=== PATIENT | female | born 1950 | race Caucasian/White ===

== ENCOUNTER 2019-01-18 14:27 | Observation (INO) | payer BC ==
[2019-01-18] MEDS ORDERED: ALBUTEROL 2.5 MG/3 ML NEB SOL NEB PRN (15:49)
[2019-01-18] MEDS ORDERED: ACETAMINOPHEN 325 MG TABLET PO PRN (15:53)
[2019-01-18] MEDS ORDERED: DIPHENHYDRAMINE 25 MG TAB/CAP PO PRN (15:53)
[2019-01-18] MEDS ORDERED: POLYETHYL GLY 3350 17 GM/DOSE PO PRN (15:54)
[2019-01-18] MEDS ORDERED: ONDANSETRON 4 MG/2 ML VIAL IV PRN (15:54)
[2019-01-18] MEDS ORDERED: ONDANSETRON 4 MG (ODT) TAB PO PRN (15:54)
[2019-01-18] MEDS ORDERED: LOPERAMIDE HCL 2 MG CAPSULE PO PRN (15:54)
[2019-01-18] MEDS ORDERED: NACHLORIDE 0.45% 1,000 ML IV SCH (16:00)
[2019-01-18 16:09] LABS: Absolute Lymphocytes (CBC) 2.4 K/uL (0.7-4.9); Basophils % 1.1 % (0-1.3); Hematocrit 43.4 % (36.0-45.0); Lymphocytes % 19.5 % (15.3-44.8); RBC Red Blood Cell Count 4.98 M/uL (3.86-4.86)
[2019-01-18 16:12] LABS: Protime INR 1.02
--- NOTE | 2019-01-18 16:27 | EKG ---
Test Date: 2019-01-18 Test Time: 15:53:31 [employer]: PATO MEASUREMENT RESULTS: Intervals: Rate: 83 MA: 140 QRSD: 72 QT: 358 QTc: 420 [place]: P: 81 MA: 140 QRS: 69 T: 75 INTERPRETIVE STATEMENTS: Sinus rhythm with premature supraventricular complexes Otherwise normal ECG Compared to ECG 12/14/2013 08:20:26 Atrial premature complex(es) now present ST (T wave) deviation no longer present Electronically Signed On 01-18-19 16:26:34 PROFESSOR OF [employer]ISTR[employer] by Harinder Jones
[2019-01-18 16:44] LABS: Albumin 3.2 g/dL (3.4-5.0); Bilirubin Direct 0.2 mg/dL (0-0.2); Bilirubin Total 0.4 mg/dL (0.2-1.0); Phosphorus 3.2 mg/dL (2.5-4.9); Potassium 4.2 mmol/L (3.5-5.1); Protein, Total 8.1 g/dL (6.4-8.2); Thyroid Stimulating Hormone 1.46 uIU/mL (0.360-3.740)
[2019-01-18 16:58] VITALS: BMI 32.1
[2019-01-18] MEDS: PIPER/TAZO/NS 3.375gm 3.375 GM/100 ML BAG IV SCH ×2 (17:07→23:42)
[2019-01-18 17:09] LABS: Blood Morphology Comment NOT SEEN (NOT SEEN); Platelet Estimate ADEQ; Urine White Blood Cell Casts OK
--- NOTE | 2019-01-18 17:25 | RAD REPORT ---
EXAM DESCRIPTION: RAD - Chest Pa And Lat (2 Views) - 01/18/2019 5:01 pm CLINICAL HISTORY: lung mass, Chest pain. COMPARISON: Chest Pa And Lat (2 Views) dated 01/15/2019; Chest Pa And Lat (2 Views) dated 11/16/2018; Chest Pa And Lat (2 Views) dated 04/02/2017; CHEST SINGLE VIEW dated 12/14/2013 FINDINGS: Emphysematous changes are present throughout the lungs. Centrally located left hilar mass/ consolidation seen extending posteriorly, unchanged. The heart is normal in size. No displaced fract ures.
[2019-01-18] MEDS ORDERED: INFLUENZA VACCINE (for 3y+) 0.5 ML DOSE IMVAC ONE (18:00)
--- NOTE | 2019-01-18 18:23 | RAD REPORT ---
EXAM DESCRIPTION: CT - Thorax W/ Con CLINICAL HISTORY: Chest pain lung mass, post obst pneumonia COMPARISON: No comparisons FINDINGS: Left infrahilar mass is seen extending into the superior segment left lower lobe medially where there is significant lung consolidation. Areas of necrosis are seen within the large consolidat ed area of lung parenchyma. Emphysematous changes are present the throughout the lungs. No pneumothor ax. Low-density necrotic left hilar and infrahilar lymph nodes are present the largest measuring about 16 -17 mm. Small dystrophic calcifications are also present. No rib destruction seen. Mild thickening of the left adrenal gland is seen. Small hiatal hernia. All CT scans are performed using dose optimization technique as appropriate and may include automated exposure control or mA/KV adjustment according to patient size. IMPRESSION: Large area of masslike consolidation with areas of necrosis in the superior segment left lower lobe. 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 Bronchoscopy would be suggested for further eval uation.
[2019-01-18] MEDS: IPRATROPIUM BROM 0.5MG/2.5ML IH SCH (19:20)
[2019-01-18] MEDS: LEVALBUTEROL 1.25 MG/3 ML NEB IH SCH (19:20)
[2019-01-18] MEDS: ENOXAPARIN 40 MG/0.4 ML SQ SCH ×2 (21:00→21:31)
[2019-01-19] MEDS: IPRATROPIUM BROM 0.5MG/2.5ML IH SCH ×2 (01:30→08:01)
[2019-01-19] MEDS: LEVALBUTEROL 1.25 MG/3 ML NEB IH SCH ×2 (01:30→08:01)
[2019-01-19 02:35] VITALS: O2SAT 90
[2019-01-19 04:26] LABS: Absolute Lymphocytes (CBC) 1.7 K/uL (0.7-4.9); Basophils % 0.9 % (0-1.3); Hematocrit 38.2 % (36.0-45.0); Lymphocytes % 19.3 % (15.3-44.8); MPV 9.9 fL (7.6-11.3); RBC Red Blood Cell Count 4.45 M/uL (3.86-4.86)
[2019-01-19 04:31] LABS: Magnesium 2.1 mg/dL (1.8-2.4); Potassium 3.9 mmol/L (3.5-5.1)
[2019-01-19] MEDS: PIPER/TAZO/NS 3.375gm 3.375 GM/100 ML BAG IV SCH ×2 (05:50→11:16)
[2019-01-19 07:11] LABS: Urine Appearance CLEAR; Urine Bilirubin NEGATIVE (NEG); Urine Blood NEGATIVE (NEG); Urine Color YELLOW; Urine Glucose NEGATIVE (NEG); Urine Protein NEGATIVE (NEG)
[2019-01-19 07:23] LABS: Urine Microscopic Reflex NO UMIC
[2019-01-19] MEDS ORDERED: POTASSIUM CL SA 10 MEQ TAB PO ONE (07:49)
--- NOTE | 2019-01-19 08:53 | P.CNS ---
Date of Consult: 01/19/19 Reason for Consult: Left-sided lung mass Chief Complaint: Left-sided chest pain History of Present Illness: Patient is 68 years of age admitted with left-sided lung mass that was present since October patient did not follow up and was treated with 1 course of antibiotics and appeared in the hospital after having a chest x-ray done apart from chest pain she denies any fever chills has had recurrent hemoptysis. Patient is on Plavix of former smoker. She quit in 2007 smoked for 50 years history of COPD apparently he has been severe in takes trilogy that helps her Allergies Sulfa (Sulfonamide Antibiotics) Allergy (Verified 12/13/13 22:54) Itching/Hives/Rash Home Medications: Clopidogrel Bisulfate [Plavix*] 75 mg PO DAILY 01/18/19 Fluticasone/Umeclidin/Vilanter [Trelegy Ellipta 100-62.5-25] 1 puff IH DAILY Ipratropium/Albuterol Sulfate [Combivent Respimat 20-100 Mcg] 1 puff IH QID Pravastatin Sodium 40 mg PO BEDTIME 01/18/19 Vortioxetine Hydrobromide [Trintellix] 20 mg PO DAILY 01/18/19 - Past Medical/Surgical History Diabetic: No -: HYPERTENSION -: CVA X2 -: COPD -: OSTEOPOROSIS -: PANCREATITIS -: BILATERAL TUBAL LIGATION -: CLEFT LIP REPAIR - Family History Father Medical History: Diabetes - Social History Alcohol use: No CD- Drugs: No Caffeine use: Yes Place of Residence: Home Review of Systems 10-point ROS is otherwise unremarkable General: Weakness Respiratory: Shortness of Breath, Hemoptysis Cardiovascular: Chest Pain Physical Examination Temp Pulse Resp BP Pulse Ox 98.0 F 90 18 98/72 94 01/19/19 04:00 01/19/19 04:00 01/19/19 04:00 01/19/19 04:00 01/19/19 04:00 General: Alert, In no apparent distress, Oriented x3 Neck: Supple Respiratory: Expiratory wheezes Cardiovascular: Regular rate/rhythm, Normal S1 S2 Gastrointestinal: Normal bowel sounds, Soft and benign Laboratory Data (last 24 hrs) 01/19/19 03:37: Sodium 138, Potassium 3.9, BUN 8, Creatinine 0.67, Glucose 114 H , Magnesium 2.1 01/19/19 03:37: WBC 9.0 D, Hgb 12.8, Hct 38.2, Plt Count 295 01/18/19 15:55: PT 12.0, INR 1.02, APTT 18.4 L 01/18/19 15:55: Sodium 135 L, Potassium 4.2, BUN 12, Creatinine 0.76, Glucose 92 , Phosphorus 3.2, Magnesium 2.0, Total Bilirubin 0.4, AST 14 L, ALT 19, Alkaline Phosphatase 158 H 01/18/19 15:55: WBC 12.4 H, Hgb 14.2, Hct 43.4, Plt Count 342 - Problems (1) Lung mass Current Visit: Yes Status: Acute Plan: Patient is 68 years of age admitted with left-sided chest pain and has enlarging mass on the left side this in the lower lobe superior segment patient has a history of hemoptysis is a former smoker or probably a malignancy. Labs reviewed minimally elevated alkaline phosphatase of discuss with the patient in detail unresolving pneumonia is most likely cancer of discuss with her a bronchoscopy that was that she will have to wait for a week off Plavix. Patient is reluctant to undergo any biopsies or procedures on any treatment right now I discuss with Dr. Augustin discharge home on antibiotics and steroids you could be postinflammatory or the Plavix for now. Follow up with me in 2 weeks and will discuss what the next step to take with her she would want to proceed with workup which include bronchoscopy PET scan and a repeat pulmonary function tests I doubt if she has a surgical candidate doubt sepsis CT scan chest x-rays all reviewed. Lung mass noticed in 03/2017 and has increasedin size
[2019-01-19] MEDS ORDERED: CLOPIDOGREL 75 MG TABLET PO SCH (09:00)
[2019-01-19] MEDS ORDERED: HOME MED 1 EA UNK (Vortioxetine Hydrobromide [Trintellix] 20 MG) PO SCH (09:00)
[2019-01-19] MEDS ORDERED: HOME MED 1 EA UNK (Fluticasone/Umeclidin/Vilanter [Trelegy Ellipta 100-62.5-25] 1 PUFF) IH SCH (09:00)
[2019-01-19] MEDS ORDERED: predniSONE 20 MG TAB PO SCH (09:00)
[2019-01-19 12:22] VITALS: BP 121/75; TEMP 98.2
[2019-01-19] MEDS ORDERED: ATORVASTATIN 10 MG TAB PO SCH (21:00)
--- NOTE | 2019-01-20 04:45 | DS ---
Date of Discharge: 01/19/2019 Final Diagnosis: Large lung mass on left side. Secondary Diagnoses: History of chronic obstructive pulmonary disease and heavy smoking in the past. Hospital Course: Patient is a 68-year-old lady who had pneumonia like consolidation according to x-r ay report by Radiology for which she was given antibiotics, failed to improve; so we had redone the x -ray which continues to show the same kind of pneumonia like consolidation report. I decided to admi t her with the possibility of lung cancer. Unfortunately, on CT scan, she does have a lung mass, whi keith needs to be further investigated with a bronchoscopy and biopsy, but she refuses to do so because she knows that with this kind of tumor, a large lung mass, she will most likely not recover from any kind of chemoradiation or surgical treatment, and she will decide and let Dr. Alvarez know the time o f followup. GIOVANY/TEE Voice ID: [id number] Report ID: [id number]
== END 2019-01-19 15:22 | disposition home or self-care (01) ==
LOC: 4TH 14:59
PROVIDERS: ADMIT Internal Medicine; ATTEND Internal Medicine
DX: R91.8 Other nonspecific abnormal finding of lung field (principal); E78.5 Hyperlipidemia, unspecified; J44.9 Chronic obstructive pulmonary disease, unspecified; I10 Essential (primary) hypertension; M81.0 Age-related osteoporosis without current pathological fracture; Z86.73 Personal history of transient ischemic attack (TIA), and cerebral infarction without residual deficits; Z88.2 Allergy status to sulfonamides; Z87.891 Personal history of nicotine dependence
CPT/HCPCS: 93005; 87070; 85025 ×2; 80048 ×2; 36415 ×2; 83735 ×2; 87205; 84100; 85610; 80076; 85730; 84443; 87077; 87186; 81003; 82607; 82306; 71260; 71046; 94640 ×3; J2543; G0378 ×3; J1650; J7512

== ENCOUNTER 2019-04-20 18:39 | Emergency (ER) | payer BC ==
--- NOTE | 2019-04-20 19:39 | RAD REPORT ---
EXAM DESCRIPTION: RAD - Chest Pa And Lat (2 Views) - 04/20/2019 7:30 pm CLINICAL HISTORY: chest pain COMPARISON: Chest Pa And Lat (2 Views) dated 02/05/2019; Chest Pa And Lat (2 Views) dated 01/18/2019 ; Thorax W/ Con dated 01/18/2019 TECHNIQUE: Frontal and lateral views of the chest were obtained. FINDINGS: The lungs are normal volume. Patient has pronounced bullous emphysema changes in each uppe r lung field. Fibrotic stranding in the right lower lung field is not substantially different. Patient has a known large mass in the posterior left lung field. This has enlarged since prior imagin g a reaching the left hemidiaphragm. This could be expansion of tumor, expansion of necrotic componen t or localized entrapped fluid. Heart size is normal and central vasculature is within normal limits. No pleural effusion or pneumot horax seen. Bones are osteopenic. Wedging of a midthoracic vertebral body is not clearly different rom January. Clearly pathologic rib process is not identifiable. No aortic abnormality. IMPRESSION: Since February 05 imaging there has been enlargement of the known posterior left lung ma ss. This could be from tumor growth, necrosis or adjacent fluid/parenchymal change. Osteopenic and degenerative bony change. No clearly pathologic bone process or bony change.
[2019-04-20] MEDS ORDERED: LEVALBUTEROL 1.25 MG/3 ML NEB ONE (21:04)
[2019-04-20 21:21] LABS: Absolute Lymphocytes (CBC) 2.2 K/uL (0.7-4.9); Basophils % 0.9 % (0-1.3); Hematocrit 43.1 % (36.0-45.0); Lymphocytes % 14.7 % (15.3-44.8); MPV 9.4 fL (7.6-11.3); RBC Red Blood Cell Count 4.96 M/uL (3.86-4.86)
[2019-04-20 21:58] LABS: Protime INR 1.16
[2019-04-20 22:11] LABS: ALT/SGPT 11 U/L (12-78); AST/SGOT 8 U/L (15-37); Albumin 2.7 g/dL (3.4-5.0); Alkaline Phosphatase 127 U/L (45-117); BUN Blood Urea Nitrogen 12 mg/dL (7-18); Bicarbonate 34 mmol/L (21-32); Bilirubin Direct < 0.1 mg/dL (0-0.2); Bilirubin Total 0.2 mg/dL (0.2-1.0); Glucose Level 111 mg/dL (74-106); Magnesium 2.1 mg/dL (1.8-2.4); NT PRO-BNP 134 pg/mL (<125); Potassium 4.6 mmol/L (3.5-5.1); Protein, Total 8.1 g/dL (6.4-8.2); Sodium Level 136 mmol/L (136-145); Troponin (Emerg Dept Use Only) < 0.02 ng/mL (0.0-0.045)
[2019-04-20] MEDS ORDERED: HYDROCODONE/APAP 5/325 MG TAB ONE (23:54)
[2019-04-20] MEDS ORDERED: levoFLOXacin 750 MG TAB ONE (23:54)
--- NOTE | 2019-04-21 01:07 | ER ---
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 Transition of care: patient was not received from another setting of care. Onset of symptoms was April 20, 2019. Care prior to arrival: None. 18:58 Method Of Arrival: Wheelchair sv 18:58 Acuity: AISSATOU 3 sv 20:57 Risk Assessment: Do you want to hurt yourself or someone else? Patient reports no mg2 desire to harm self or others. Initial Sepsis Screen: Does the patient meet any 2 criteria? No. Patient's initial sepsis screen is negative. Does the patient have a suspected source of infection? No. Patient's initial sepsis screen is negative. Triage Assessment: 18:58 General: Appears in no apparent distress. uncomfortable, Behavior is calm, cooperative, sv appropriate for age. Pain: Complains of pain in left lateral posterior chest and left lateral anterior chest. Neuro: Level of Consciousness is awake, alert, obeys commands. Respiratory: Respiratory effort is even, unlabored. Derm: Skin is pink, warm \\T\\ dry. Historical: - Allergies: 18:59 Sulfa (Sulfonamide Antibiotics); sv - PMHx: 18:59 lung cancer; COPD; OP; CVA; sv - Immunization history:: Flu vaccine status is unknown. - Coronavirus screen:: The patient has NOT traveled to [place] in the past 14 days. Proceed with normal triage process as indicated. - Social history:: Smoking status: Patient/guardian denies using tobacco, the patient reports quitting approximately 8 years ago. - Ebola Screening: : No symptoms or risks identified at this time. Screenin:56 Abuse screen: Denies threats or abuse. Denies injuries from another. Nutritional mg2 screening: No deficits noted. Tuberculosis screening: No symptoms or risk factors identified. Fall Risk Ambulatory Aid- None/Bed Rest/Nurse Assist (0 pts). Assessment: 20:55 General: Appears in no apparent distress. comfortable, Behavior is calm, cooperative. mg2 Pain: Complains of pain in left lateral posterior chest. Neuro: Level of Consciousness is awake, alert, obeys commands, Oriented to person, place, time, situation. Cardiovascular: Capillary refill < 3 seconds Patient's skin is warm and dry. Respiratory: Airway is patent Respiratory effort is even, unlabored, Respiratory pattern is regular, symmetrical. GI: No signs and/or symptoms were reported involving the gastrointestinal system. : No signs and/or symptoms were reported regarding the genitourinary system. EENT: No signs and/or symptoms were reported regarding the EENT system. Derm: Skin is intact, is healthy with good turgor, Skin is pink, warm \\T\\ dry. normal. Musculoskeletal: Circulation, motion, and sensation intact. Capillary refill < 3 seconds, Reports pain in left lateral posterior chest. 22:49 Reassessment: Patient appears in no apparent distress at this time. Patient and/or mg2 family updated on plan of care and expected duration. Pain level reassessed. Patient is alert, oriented x 3, equal unlabored respirations, skin warm/dry/pink. 23:59 Reassessment: instructed about the use of incentive spirometer. patient understood well.mg2 04/21 00:39 Reassessment: Patient appears in no apparent distress at this time. mg2 Vital Signs: 04/20 19:00 BP 132 / 92; Pulse 100; Resp 22; Temp 98; Pulse Ox 89% on 3 lpm NC; Weight 83.01 kg; sv Height 5 ft. 4 in. (162.56 cm); 20:54 BP 113 / 84; Pulse 96; Resp 18; Pulse Ox 90% on 3 lpm NC; mg2 22:49 BP 111 / 86; Pulse 101; Resp 18; Pulse Ox 91% on 3 lpm NC; mg2 23:58 BP 113 / 84; Pulse 95; Resp 18; Pulse Ox 96% on 3 lpm NC; mg2 04/21 00:39 BP 112 / 80; Pulse 92; Resp 18; Temp 98.1; Pulse Ox 93% on 3 lpm NC; mg2 04/20 19:00 Body Mass Index 31.41 (83.01 kg, 162.56 cm) sv ED Course: 04/20 18:40 Patient arrived in ED. as 18:59 Triage completed. sv 19:00 Arm band placed on. sv 20:47 Jose Cruz PA is PHCP. cp 20:47 Mio Marshall MD is Attending Physician. cp 20:54 Molina Tatum, DIAN is Primary Nurse. mg2 20:56 No provider procedures requiring assistance completed. mg2 20:57 Patient has correct armband on for positive identification. Pulse ox on. NIBP on. Door mg2 closed. 21:10 Inserted saline lock: 20 gauge in right antecubital area, using aseptic technique. rr5 Blood collected. 23:13 Chest Pa And Lat (2 Views) In Process Unspecified. EDMS 23:45 Chest For Pe Angio In Process Unspecified. EDMS 04/21 00:12 Ovi Augustin MD is Referral Physician. cp 00:40 IV discontinued, intact, bleeding controlled, No redness/swelling at site. Pressure mg2 dressing applied. Administered Medications: 04/20 21:01 Drug: Xopenex (3) 1.25 mg Route: Inhalation; mg2 23:57 Drug: HYDROcodone-acetaminophen 5 mg-325 mg 1 tabs Route: PO; mg2 23:57 Follow up: Response: No adverse reaction; Medication administered at discharge. mg2 23:57 Drug: LevaQUIN 750 mg Route: PO; mg2 23:57 Follow up: Response: No adverse reaction; Medication administered at discharge. mg2 Outcome: 04/21 00:17 Discharge ordered by MD. cp 00:41 Discharged to home via wheelchair, with family. mg2 00:41 Condition: stable 00:41 Discharge instructions given to patient, family, Instructed on discharge instructions, follow up and referral plans. medication usage, Demonstrated understanding of instructions, follow-up care, medications, Prescriptions given X 2. 00:41 Patient left the ED. mg2 Signatures: Dispatcher [employer] EDPR Daija Bolanos RN RN Cherise Adhikari as Jose Cruz PA PA cp Molina Tatum, DIAN BIGGS mg2 Henry Reyes RN RN rr5 Corrections: (The following items were deleted from the chart) 04/20 19:13 18:58 Acuity: AISSATOU 4 sv sv 04/21 00:00 04/20 23:59 Reassessment: instructed about the use of incentive spirometer. mg2 mg2 04/21 00:41 04/20 20:56 Patient did not have IV access during this emergency room visit. mg2 mg2
--- NOTE | 2019-04-21 01:07 | EDPHYS ---
Physician Documentation [facility] Name: Yusra Barajas Age: 68 yrs Sex: Female : 1950 Arrival Date: 04/20/2019 Time: 18:40 Bed 19 Private MD: ED Physician Mio Marshall HPI: 04/20 20:55 This 68 yrs old Female presents to ER via Wheelchair with complaints of Rib cp Pain. 20:55 The patient or guardian reports chest pain that is located primarily in the left cp lateral anterior chest and left lateral posterior chest. 20:55 Onset: today. The pain does not radiate. Associated signs and symptoms: Pertinent cp negatives: abdominal pain, cough, diaphoresis, lower extremity pain, lower extremity swelling, shortness of breath, syncope, trauma. 20:55 Patient reports hearing "pop" and then having pain in left lateral rib area that cp started this morning. Denies trauma to area. Reports history of left lung cancer. Not doing chemo or radiation due to other health issues. Dr Augustin is managing lung cancer. Historical: - Allergies: 18:59 Sulfa (Sulfonamide Antibiotics); sv - PMHx: 18:59 lung cancer; COPD; OP; CVA; sv - Immunization history:: Flu vaccine status is unknown. - Coronavirus screen:: The patient has NOT traveled to [place] in the past 14 days. Proceed with normal triage process as indicated. - Social history:: Smoking status: Patient/guardian denies using tobacco, the patient reports quitting approximately 8 years ago. - Ebola Screening: : No symptoms or risks identified at this time. ROS: 21:00 Constitutional: Negative for body aches, chills, fever, poor PO intake. cp 21:00 Eyes: Negative for injury, pain, redness, and discharge. cp 21:00 ENT: Negative for drainage from ear(s), ear pain, sore throat, difficulty swallowing, difficulty handling secretions. 21:00 Cardiovascular: Positive for chest pain, Negative for edema, palpitations. 21:00 Respiratory: Negative for cough, shortness of breath, wheezing. 21:00 Abdomen/GI: Negative for abdominal pain, vomiting, diarrhea, constipation. 21:00 Back: Negative for pain at rest, pain with movement, radiated pain. 21:00 Skin: Negative for rash. 21:00 Neuro: Negative for altered mental status, headache, weakness. 21:00 All other systems are negative. Exam: 21:10 Constitutional: The patient appears in no acute distress, alert, awake, cp non-diaphoretic, non-toxic, well developed, well nourished. 21:10 Head/Face: Normocephalic, atraumatic. cp 21:10 Eyes: Periorbital structures: appear normal, Pupils: equal, round, and reactive to light and accomodation, Extraocular movements: intact throughout, Conjunctiva: normal, no exudate, no injection, Sclera: no appreciated abnormality, Lids and lashes: appear normal, bilaterally. 21:10 ENT: External ear(s): are unremarkable, Ear canal(s): are normal, clear, TM's: dullness, bilaterally, Nose: is normal, Mouth: Lips: moist, Oral mucosa: pink and intact, moist, Posterior pharynx: is normal, airway is patent, no erythema, no exudate. 21:10 Neck: ROM/movement: is normal, is supple, without pain, no range of motions limitations, no nuchal rigidity. 21:10 Chest/axilla: Inspection: normal, Palpation: crepitus, is not appreciated, tenderness, that is moderate, of the left lateral anterior chest and left lateral posterior chest. 21:10 Cardiovascular: Rate: normal, Rhythm: regular, Edema: is not appreciated, JVD: is not appreciated. 21:10 Respiratory: the patient does not display signs of respiratory distress, Respirations: labored breathing, that is mild, intercostal retractions, are absent, splinting, is not noted, tachypnea, is not appreciated, Breath sounds: decreased breath sounds, that are moderate, throughout, stridor, is not appreciated, wheezing: is not appreciated. 21:10 Abdomen/GI: Inspection: abdomen appears normal, Bowel sounds: active, all quadrants, Palpation: abdomen is soft and non-tender, in all quadrants. 21:10 Back: pain, is absent, ROM is normal. 21:10 Skin: cellulitis, is not appreciated, no rash present. 21:10 Neuro: Orientation: to person, place \\T\\ time. Mentation: is normal, Cerebellar function: is grossly normal, Motor: moves all fours, strength is normal, Sensation: is normal. 21:16 ECG was reviewed by the Attending Physician. Vital Signs: 19:00 BP 132 / 92; Pulse 100; Resp 22; Temp 98; Pulse Ox 89% on 3 lpm NC; Weight 83.01 kg; sv Height 5 ft. 4 in. (162.56 cm); 20:54 BP 113 / 84; Pulse 96; Resp 18; Pulse Ox 90% on 3 lpm NC; mg2 22:49 BP 111 / 86; Pulse 101; Resp 18; Pulse Ox 91% on 3 lpm NC; mg2 23:58 BP 113 / 84; Pulse 95; Resp 18; Pulse Ox 96% on 3 lpm NC; mg2 04/21 00:39 BP 112 / 80; Pulse 92; Resp 18; Temp 98.1; Pulse Ox 93% on 3 lpm NC; mg2 04/20 19:00 Body Mass Index 31.41 (83.01 kg, 162.56 cm) sv MDM: 04/20 20:48 Patient medically screened. cp 21:00 Differential diagnosis: acute myocardial infarction, acute pericarditis, chest wall cp pain, costochondritis, pleurisy, pneumonia, pneumothorax, pulmonary embolus, rib fracture, metastatic lung cancer. 04/21 00:16 Data reviewed: vital signs, nurses notes, lab test result(s), EKG, radiologic studies, cp CT scan, plain films, I have discussed the patient's presentation/case with the attending Emergency Department Physician; and as a result, I will discharge patient. 00:16 Test interpretation: by ED physician or midlevel provider: ECG. Counseling: I had a cp detailed discussion with the patient and/or guardian regarding: the historical points, exam findings, and any diagnostic results supporting the discharge/admit diagnosis, lab results, radiology results, the need for outpatient follow up, for definitive care, an clinical science consultant, to return to the emergency department if symptoms worsen or persist or if there are any questions or concerns that arise at home. Response to treatment: the patient's symptoms have markedly improved after treatment, VSS. Pain improved. No signs of respiratory distress, and as a result, I will discharge patient. 04/20 20:58 Order name: Troponin (emerg Dept Use Only) cp 04/20 20:58 Order name: Basic Metabolic Panel cp 04/20 20:58 Order name: CBC with Diff cp 04/20 20:58 Order name: LFT's cp 04/20 20:58 Order name: Magnesium cp 04/20 20:58 Order name: NT PRO-BNP cp 04/20 20:58 Order name: PT-INR cp 04/20 23:02 Order name: CBC with Automated Diff; Complete Time: 23:24 EDMS 04/20 23:24 Interpretation: Normal except: WBC 14.7; RBC 4.96; MCHC 31.9; PLT 412; RDW 15.4; LEANDRA% cp 74.9; LYM% 14.7; NEUT A 11.0. 04/20 23:02 Order name: Protime (+INR); Complete Time: 23:24 EDMS 04/20 23:25 Interpretation: Abnormal: PT 13.6. cp 04/20 23:02 Order name: Basic Metabolic Panel; Complete Time: 23:24 EDMS 04/20 23:26 Interpretation: Normal except: CL 97; CO2 34; GLUC 111; CA 11.3. cp 04/20 23:02 Order name: Liver (Hepatic) Function; Complete Time: 23:24 EDMS 04/20 23:25 Interpretation: Normal except: AST 8; ALT 11; ALK 127; ALB 2.7; GLOB 5.4; A/G 0.5. cp 04/20 23:03 Order name: Troponin (Emerg Dept Use Only); Complete Time: 23:24 EDMS 04/20 23:25 Interpretation: Within normal limits: TROPED < 0.02. cp 04/20 23:03 Order name: NT PRO-BNP; Complete Time: 23:24 EDMS 04/20 23:03 Order name: Magnesium; Complete Time: 23:24 EDMS 04/20 23:39 Interpretation: Within normal limits: MG 2.1. cp 04/20 19:13 Order name: XRAY Chest Pa And Lat (2 Views) rn 04/20 20:58 Order name: EKG; Complete Time: 23:05 cp 04/20 20:58 Order name: Cardiac monitoring; Complete Time: 21:10 cp 04/20 20:58 Order name: EKG - Nurse/Tech; Complete Time: 21:10 cp 04/20 20:58 Order name: IV Saline Lock; Complete Time: 21:11 cp 04/20 20:58 Order name: Labs collected and sent; Complete Time: 21:11 cp 04/20 20:58 Order name: O2 Per Protocol; Complete Time: 21:11 cp 04/20 20:58 Order name: O2 Sat Monitoring; Complete Time: 21:11 cp 04/20 20:58 Order name: CT Chest For PE Angio cp 04/20 23:12 Order name: Chest Pa And Lat (2 Views) [facility] 04/20 23:28 Order name: Chest For Pe Angio [facility] 04/20 23:47 Order name: INCENTIVE SPIROMETRY cp EC/25 21:16 Rate is 98 beats/min. Rhythm is regular. MN interval is normal. QRS interval is normal. cp QT interval is normal. Interpreted by me. Reviewed by me. Administered Medications: 21:01 Drug: Xopenex (3) 1.25 mg Route: Inhalation; mg2 23:57 Drug: HYDROcodone-acetaminophen 5 mg-325 mg 1 tabs Route: PO; mg2 23:57 Follow up: Response: No adverse reaction; Medication administered at discharge. mg2 23:57 Drug: LevaQUIN 750 mg Route: PO; mg2 23:57 Follow up: Response: No adverse reaction; Medication administered at discharge. mg2 Disposition: 04/21 00:52 Co-signature as Attending Physician, Mio Marshall MD. rn Disposition: 04/21/19 00:17 Discharged to Home. 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 - Condition is Stable. - Discharge Instructions: Rib Fracture, Incentive Spirometer, Lung Cancer. - Prescriptions for Levaquin 750 mg Oral Tablet - take 1 tablet by ORAL route once daily for 10 days start evening of 04/21/2019; 9 tablet. Tylenol- Codeine #3 300-30 mg Oral Tablet - take 2 tablets by ORAL route every 6 hours As needed; 20 tablet. - Medication Reconciliation Form, Thank You Letter, Antibiotic Education, Prescription Opioid Use form. - Follow up: Ovi Augustin MD; When: 1 - 2 days; Reason: Recheck today's complaints. - Problem is new. - Symptoms have improved. Signatures: Dispatcher [employer] [facility] Daija Bolanos RN RN sv Nieto, Roman, MD MD rn Page, Corey, PA PA cp Gardose, Michele, RN RN mg2 Corrections: (The following items were deleted from the chart) 04/20 23:26 23:25 Normal except: CL 97; CO2 34; GLUC 111. cp cp 04/21 00:41 00:17 04/21/2019 00:17 Discharged to Home. Impression: Fracture of one rib, left side - mg2 posterior lateral left ninth; Carcinoma in situ of bronchus and lung - left upper and middle lobes. Condition is Stable. Forms are Medication Reconciliation Form, Thank You Letter, Antibiotic Education, Prescription Opioid Use. Follow up: Ovi Augustin; When: 1 - 2 days; Reason: Recheck today's complaints. Problem is new. Symptoms have improved. cp
[2019-04-21 04:24] VITALS: BP 112/80; TEMP 98.1; O2SAT 93
--- NOTE | 2019-04-21 08:18 | EKG ---
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
--- NOTE | 2019-04-21 11:45 | RAD REPORT ---
EXAM DESCRIPTION: CT - Chest For Pe Angio - 04/21/2019 3:33 am CLINICAL HISTORY: 68 years Female rib pain COMPARISON: CT scan of the chest dated January 18, 2019. TECHNIQUE: Images were obtained in axial, sagittal, and coronal planes. Intravenous contrast was adm inistered. This exam was performed according to our departmental dose-optimization program which includes use of Automated Exposure Control, adjustment of the mA and/or kV according to patient size and/or use of i terative reconstruction technique. FINDINGS: Large mass versus consolidation medial left lower lobe again identified. Previously noted cavitating components versus residual aeration no longer visualized. Punctate calcifications again no javi. The finding appears increased in size when correlated with the prior study. Pulmonary vessels ar e encased by this finding. New 2.3 x 1.8 cm noncalcified spiculated mass now identified anterior late ral left upper lobe. This finding extends to the pleural surface. This finding is highly suspicious f or neoplasm. Additional groundglass attenuation lingula and left upper lobe consistent with infiltrat e or atelectatic change. No filling defects pulmonary arteries bilaterally. No aortic dissection or dilatation. No pericardial or pleural effusions bilaterally. No pneumothorax. No adenopathy. Hyperinflation right lung. Severe centrilobular emphysema again noted. Mediastinal kelechi ft to the left. No abnormality upper abdomen. Small hiatal hernia. Fracture posterior lateral left ninth rib. Possible erosive change related to direct extension of adj acent soft tissue lesion in this region. Compression fracture T7 unchanged when correlated with the p rior study. IMPRESSION: Fracture posterior lateral left ninth rib. No associated pneumothorax. Possible direct e xtension of tumor in this region. No evidence for pulmonary embolus. No aortic dissection or dilatation. Large confluent mass versus consolidation medial left lower lobe increased when correlated with the p rior study. 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 New 2.3 cm spiculated mass left upper lobe also suspicious for neoplasm likely additional primary. Additional gr oundglass infiltrate left upper lobe and lingula. Severe COPD again noted. Electronically signed by: Sofie Fitzgerald MD 04/20/2019 11:06 PM CHERRY CUTTER Due to temporary technical issues with the PACS/Fluency reporting system, reports are being signed by the in house radiologist as a courtesy to ensure prompt reporting. The interpreting radiologist is f ully responsible for the content of the report.
== END 2019-04-21 00:41 | disposition home or self-care (01) ==
LOC: ER 18:39
DX: S22.32XA Fracture of one rib, left side, initial encounter for closed fracture (principal); D02.20 Carcinoma in situ of unspecified bronchus and lung; Z88.2 Allergy status to sulfonamides
CPT/HCPCS: 93005; 85025; 80048; 36415; 83735; 85610; 80076; 84484; 83880; 71275; 71046; 99284; Q9967

== ENCOUNTER 2019-06-05 02:44 | Emergency (ER) | payer BC ==
[2019-06-05 03:43] LABS: ALT/SGPT 12 U/L (12-78); AST/SGOT 18 U/L (15-37); Albumin 2.6 g/dL (3.4-5.0); Alkaline Phosphatase 151 U/L (45-117); BUN Blood Urea Nitrogen 8 mg/dL (7-18); Bicarbonate 32 mmol/L (21-32); Bilirubin Total 0.4 mg/dL (0.2-1.0); Glucose Level 114 mg/dL (74-106); Potassium 3.7 mmol/L (3.5-5.1); Protein, Total 7.7 g/dL (6.4-8.2); Sodium Level 138 mmol/L (136-145)
[2019-06-05 03:48] LABS: MPV 9.9 fL (7.6-11.3)
[2019-06-05 03:51] LABS: Absolute Lymphocytes (CBC) 0.7 K/uL (0.7-4.9); Basophils % 0.5 % (0-1.3); Hematocrit 44.8 % (36.0-45.0); Lymphocytes % 4.5 % (15.3-44.8); RBC Red Blood Cell Count 5.35 M/uL (3.86-4.86)
[2019-06-05 04:14] LABS: Blood Morphology Comment NOT SEEN (NOT SEEN); Platelet Estimate ADEQ
--- NOTE | 2019-06-05 04:58 | EDPHYS ---
Physician Documentation [facility] Name: Yusra Barajas Age: 68 yrs Sex: Female : 1950 Arrival Date: 06/05/2019 Time: 02:45 Bed 26 Private MD: ED Physician Jose Long HPI: 06/04 03:01 This 68 yrs old Female presents to ER via EMS with complaints of Fall Injury. afshan 03:01 Details of fall: The patient fell from an upright position, while walking. Onset: The afshan symptoms/episode began/occurred just prior to arrival. Associated injuries: The patient sustained injury to the low back. Severity of symptoms: At their worst the symptoms were mild, moderate, in the emergency department the symptoms have improved. The patient has not experienced similar symptoms in the past, The patient has experienced a previous episode. Historical: - Allergies: 02:57 Sulfa (Sulfonamide Antibiotics); bb - Home Meds: 02:57 Plavix Oral [Active]; gabapentin oral oral [Active]; pravastatin oral oral [Active]; bb Trintellix oral oral [Active]; trelegy [Active]; pentazocine-naloxone 50-0.5 mg oral tab [Active]; - PMHx: 02:57 COPD; CVA; Lung Cancer; OP; bb - Immunization history: Last tetanus immunization: unknown. - Social history:: Smoking status: unknown. - Family history:: not pertinent. ROS: 03:01 Constitutional: Negative for fever, chills, and weight loss, Eyes: Negative for injury, afshan pain, redness, and discharge, ENT: Negative for injury, pain, and discharge, Neck: Negative for injury, pain, and swelling, Cardiovascular: Negative for chest pain, palpitations, and edema, Respiratory: Negative for shortness of breath, cough, wheezing, and pleuritic chest pain, Abdomen/GI: Negative for abdominal pain, nausea, vomiting, diarrhea, and constipation, : Negative for injury, bleeding, discharge, and swelling, MS/Extremity: Negative for injury and deformity, Skin: Negative for injury, rash, and discoloration, Neuro: Negative for headache, weakness, numbness, tingling, and seizure, Psych: Negative for depression, anxiety, suicide ideation, homicidal ideation, and hallucinations, Allergy/Immunology: Negative for hives, rash, and allergies, Endocrine: Negative for neck swelling, polydipsia, polyuria, polyphagia, and marked weight changes, Hematologic/Lymphatic: Negative for swollen nodes, abnormal bleeding, and unusual bruising. 03:01 Back: Positive for decreased range of motion, pain at rest, pain with movement, radiated pain, of the low back area and left low back and right low back. Exam: 03:01 Constitutional: This is a well developed, well nourished patient who is awake, alert, afshan and in no acute distress. Head/Face: Normocephalic, atraumatic. Eyes: Pupils equal round and reactive to light, extra-ocular motions intact. Lids and lashes normal. Conjunctiva and sclera are non-icteric and not injected. Cornea within normal limits. Periorbital areas with no swelling, redness, or edema. ENT: Nares patent. No nasal discharge, no septal abnormalities noted. Tympanic membranes are normal and external auditory canals are clear. Oropharynx with no redness, swelling, or masses, exudates, or evidence of obstruction, uvula midline. Mucous membranes moist. Neck: Trachea midline, no thyromegaly or masses palpated, and no cervical lymphadenopathy. Supple, full range of motion without nuchal rigidity, or vertebral point tenderness. No Meningismus. Chest/axilla: Normal chest wall appearance and motion. Nontender with no deformity. No lesions are appreciated. Cardiovascular: Regular rate and rhythm with a normal S1 and S2. No gallops, murmurs, or rubs. Normal PMI, no JVD. No pulse deficits. Respiratory: Lungs have equal breath sounds bilaterally, clear to auscultation and percussion. No rales, rhonchi or wheezes noted. No increased work of breathing, no retractions or nasal flaring. Abdomen/GI: Soft, non-tender, with normal bowel sounds. No distension or tympany. No guarding or rebound. No evidence of tenderness throughout. Back: No spinal tenderness. No costovertebral tenderness. Full range of motion. Skin: Warm, dry with normal turgor. Normal color with no rashes, no lesions, and no evidence of cellulitis. Neuro: Awake and alert, GCS 15, oriented to person, place, time, and situation. Cranial nerves II-XII grossly intact. Motor strength 5/5 in all extremities. Sensory grossly intact. Cerebellar exam normal. Normal gait. Psych: Awake, alert, with orientation to person, place and time. Behavior, mood, and affect are within normal limits. 03:01 Musculoskeletal/extremity: Extremities: grossly normal except: noted in the lumbar area, left low back and right low back: decreased ROM, pain. Vital Signs: 02:49 BP 119 / 91; Pulse 107; Resp 18 S; Temp 98.2(O); Pulse Ox 92% on 4 lpm NC; Weight 81.65 bb kg (R); Height 5 ft. 5 in. (165.10 cm) (R); Pain 9/10; 03:45 BP 122 / 71; Pulse 96; Resp 13; Pulse Ox 96% on 4 lpm NC; rv 04:30 BP 107 / 51; Pulse 93; Resp 15; Pulse Ox 96% on 4 lpm NC; rv 05:30 BP 94 / 66; Pulse 88; Resp 15; Temp 98; Pulse Ox 96% on 4 lpm NC; rv 02:49 Body Mass Index 29.95 (81.65 kg, 165.10 cm) bb [place] Coma Score: 02:49 Eye Response: spontaneous(4). Verbal Response: oriented(5). Motor Response: obeys bb commands(6). Total: 15. Trauma Score (Adult): 02:49 Eye Response: spontaneous(1); Verbal Response: oriented(1); Motor Response: obeys bb commands(2); Systolic BP: > 89 mm Hg(4); Respiratory Rate: 10 to 29 per min(4); Feliciano Score: 15; Trauma Score: 12 MDM: 02:[address] [facility] 03:04 Data reviewed: vital signs, nurses notes, lab test result(s), radiologic studies, CT afshan scan. 06/04 03:00 Order name: Comprehensive Metabolic Panel; Complete Time: 04:09 afshan 06/04 03:00 Order name: CBC with Diff; Complete Time: 04:50 [facility] 06/04 03:00 Order name: CT Lumbar Spine Wo Con [facility] 06/04 04:14 Order name: Manual Differential; Complete Time: 04:50 EDMS Administered Medications: 05:00 Drug: morphine 2 mg {Note: RASS 0.} Route: IVP; Site: right antecubital; rv 05:28 Follow up: Response: No adverse reaction rv 05:00 Drug: Zofran (Ondansetron) 4 mg Route: IVP; Site: right antecubital; rv 05:29 Follow up: Response: No adverse reaction rv 05:00 Drug: Rocephin 1 grams Route: IV; Rate: per protocol; Site: right antecubital; rv 05:25 Follow up: Response: No adverse reaction; IV Status: Completed infusion rv Disposition: 06/05/19 04:57 Discharged to Home. Impression: Fall due to bumping against object, Fracture of first lumbar vertebra - compression, 20%, Urinary tract infection, site not specified, Chronic obstructive pulmonary disease, unspecified - hospice care. - Condition is Fair. - Discharge Instructions: Spinal Compression Fracture, Chronic Bronchitis, Dysuria, Urinary Tract Infection, Adult, Urinary Tract Infection, Adult, [id number], Fall Prevention in the Home, [id number]. - Prescriptions for Cipro 250 mg Oral Tablet - take 1 tablet by ORAL route every 12 hours; 14 tablet. Colace 100 mg Oral Tablet - take 1 tablet by ORAL route every 12 hours; 14 tablet. Tylenol- Codeine #3 300-30 mg Oral Tablet - take 2 tablet by ORAL route every 6 hours As needed; 30 tablet. - Medication Reconciliation Form, Thank You Letter, Antibiotic Education, Prescription Opioid Use form. - Follow up: Private Physician; When: 2 - 3 days; Reason: Recheck today's complaints, Continuance of care, Re-evaluation by your physician. - Problem is new. - Symptoms have improved. Signatures: Dispatcher [employer] EDMS Jose Long MD MD cha Ballard, Brenda, RN RN Madi Dukes RN RN rv Corrections: (The following items were deleted from the chart) 05:40 04:57 06/05/2019 04:57 Discharged to Home. Impression: Fall due to bumping against rv object; Fracture of first lumbar vertebra - compression, 20%; Urinary tract infection, site not specified; Chronic obstructive pulmonary disease, unspecified - hospice care. Condition is Fair. Forms are Medication Reconciliation Form, Thank You Letter, Antibiotic Education, Prescription Opioid Use. Follow up: Private Physician; When: 2 - 3 days; Reason: Recheck today's complaints, Continuance of care, Re-evaluation by your physician. Problem is new. Symptoms have improved. afshan
--- NOTE | 2019-06-05 04:58 | ER ---
Nurse's Notes [facility] Name: Yusra Barajas Age: 68 yrs Sex: Female : 1950 Arrival Date: 06/05/2019 Time: 02:45 Bed 26 Private MD: Diagnosis: Fall due to bumping against object;Fracture of first lumbar vertebra-compression, 20%;Urinary tract infection, site not specified;Chronic obstructive pulmonary disease, unspecified-hospice care Presentation: 06/04 02:49 Chief complaint: EMS states: they were toned out for a fall injury pt is a hospice pt bb for lung cancer, COPD, spouse found pt on floor in bathroom unknown if pt had LOC. Care prior to arrival: None. Mechanism of Injury: Fall from standing position. Trauma event details: Injury occurred in the [facility], Injury occurred: at home. Injury occurred: June 05, 2019. 02:49 Acuity: AISSTAOU 2 bb 02:49 Method Of Arrival: EMS: [facility] bb 02:54 Coronavirus screen: Proceed with normal triage. Ebola Screen: No symptoms or risks bb identified at this time. Initial Sepsis Screen: Does the patient meet any 2 criteria? No. Patient's initial sepsis screen is negative. Does the patient have a suspected source of infection? No. Patient's initial sepsis screen is negative. Risk Assessment: Do you want to hurt yourself or someone else? Patient reports no desire to harm self or others. Onset of symptoms was June 05, 2019. 02:58 Note pt's spouse is Edson Barajas phone number # [phone]. bb Trauma Activation: Alert Physician: ED Physician; Name: Dr Long; Notified At: 02:50; Arrived At: 02:50 Physician: General Surgeon; Name: ; Notified At: 02:50; Arrived At: Physician: Radiology; Name: Jatin Mcneill; Notified At: 02:50; Arrived At: 02:51 Physician: Respiratory; Name: ; Notified At: 02:50; Arrived At: Physician: Lab; Name: ; Notified At: 02:50; Arrived At: Historical: - Allergies: 02:57 Sulfa (Sulfonamide Antibiotics); bb - Home Meds: 02:57 Plavix Oral [Active]; gabapentin oral oral [Active]; pravastatin oral oral [Active]; bb Trintellix oral oral [Active]; trelegy [Active]; pentazocine-naloxone 50-0.5 mg oral tab [Active]; - PMHx: 02:57 COPD; CVA; Lung Cancer; OP; bb - Immunization history: Last tetanus immunization: unknown. - Social history:: Smoking status: unknown. - Family history:: not pertinent. Screenin:49 Abuse screen: Denies threats or abuse. Tuberculosis screening: No symptoms or risk bb factors identified. 02:54 Nutritional screening: No deficits noted. Fall Risk Fall in past 12 months (25 points). rv Secondary diagnosis (15 points) impaired mobility, IV access (20 points). Ambulatory Aid- Crutches/Cane/Walker (15 pts). Gait- Weak (10 pts.). Mental Status- Oriented to own ability (0 pts). Total Rodriguez Fall Scale indicates High Risk Score (45 or more points). Fall prevention measures have been instituted. Side Rails Up X 2 Frequent Obs/Assessments Occuring As available patient and family educated on Fall Prevention Program and Strategies. Primary Survey: 02:49 NO uncontrolled hemorrhage observed. A: The patient is alert. Airway: patent. bb Breathing/Chest: Respiratory pattern: regular, Respiratory effort: unlabored. Circulation: Heart tones present. Disability Alert. 02:57 Reassessment Breathing/Chest. rv 04:00 Exposure/Environment: There is no evidence of uncontrolled external bleeding. No rv obvious injuries are noted at this time. A warming method has been applied: A warm blanket has been provided to the patient. Assessment: 02:54 General: Appears in no apparent distress. uncomfortable, Behavior is calm, cooperative. rv Pain: Complains of pain in lumbar area, left low back and right low back. Neuro: Level of Consciousness is awake, alert, obeys commands, Oriented to person, place, time, situation. Cardiovascular: Patient's skin is warm and dry. Respiratory: Airway is patent Breath sounds are clear bilaterally. Derm: Skin with poor turgor. 03:21 Reassessment: PATIENT TAKEN TO CT SCAN. rv 03:44 Reassessment: PATIENT IS BACK FROM CT SCAN. PAIN REASSESSED, PATIENT REFUSED PAIN rv MEDICATION. RECOLLECT BLOOD SAMPLE AND SENT TO LAB. Vital Signs: 02:49 BP 119 / 91; Pulse 107; Resp 18 S; Temp 98.2(O); Pulse Ox 92% on 4 lpm NC; Weight 81.65 bb kg (R); Height 5 ft. 5 in. (165.10 cm) (R); Pain 9/10; 03:45 BP 122 / 71; Pulse 96; Resp 13; Pulse Ox 96% on 4 lpm NC; rv 04:30 BP 107 / 51; Pulse 93; Resp 15; Pulse Ox 96% on 4 lpm NC; rv 05:30 BP 94 / 66; Pulse 88; Resp 15; Temp 98; Pulse Ox 96% on 4 lpm NC; rv 02:49 Body Mass Index 29.95 (81.65 kg, 165.10 cm) bb Rich[place] Coma Score: 02:49 Eye Response: spontaneous(4). Verbal Response: oriented(5). Motor Response: obeys bb commands(6). Total: 15. Trauma Score (Adult): 02:49 Eye Response: spontaneous(1); Verbal Response: oriented(1); Motor Response: obeys bb commands(2); Systolic BP: > 89 mm Hg(4); Respiratory Rate: 10 to 29 per min(4); Feliciano Score: 15; Trauma Score: 12 ED Course: 02:45 Patient arrived in ED. cl3 02:46 Jose Long MD is Attending Physician. afshan 02:49 Patient has correct armband on for positive identification. Bed in low position. Call bb light in reach. Side rails up X2. 02:49 Oxygen administration via nasal cannula \T\ 4L/min. bb 02:52 Triage completed. bb 02:54 Madi Pérez, DIAN is Primary Nurse. rv 02:54 air sampling and monitoring on. Pulse ox on. NIBP on. rv 02:57 Arm band placed on Patient placed in an exam room, on a stretcher, on oxygen, on pulse bb oximetry. 02:58 Thermoregulation: warm blanket given to patient. rv 03:13 Inserted saline lock: 20 gauge in right antecubital area, using aseptic technique. oe Blood collected. 03:51 CT Lumbar Spine Wo Con In Process Unspecified. EDMS 05:29 No provider procedures requiring assistance completed. IV discontinued, intact, rv bleeding controlled, No redness/swelling at site. Pressure dressing applied. Administered Medications: 05:00 Drug: morphine 2 mg {Note: RASS 0.} Route: IVP; Site: right antecubital; rv 05:28 Follow up: Response: No adverse reaction rv 05:00 Drug: Zofran (Ondansetron) 4 mg Route: IVP; Site: right antecubital; rv 05:29 Follow up: Response: No adverse reaction rv 05:00 Drug: Rocephin 1 grams Route: IV; Rate: per protocol; Site: right antecubital; rv 05:25 Follow up: Response: No adverse reaction; IV Status: Completed infusion rv Intake: 02:49 PO: 0ml; Total: 0ml. bb Outcome: 04:57 Discharge ordered by . afshan 05:31 Discharged to home via wheelchair, with family. rv 05:31 Condition: good 05:31 Discharge instructions given to patient, Instructed on discharge instructions, follow up and referral plans. medication usage, Demonstrated understanding of instructions, follow-up care, medications, Prescriptions given X 3. 05:40 Patient left the ED. rv Signatures: Dispatcher [employer] EDMS Jose Long MD MD cha Ballard, Brenda, RN RN bb Ottoniel Ashraf Ronaldo, RN RN Camden Grace cl3
[2019-06-05] MEDS ORDERED: MORPHINE 2 MG/ML SYR ONE (05:06)
[2019-06-05] MEDS ORDERED: CEFTRIAXONE/SWI 1gm 1 GM/10 ML SYR ONE (05:06)
[2019-06-05] MEDS ORDERED: ONDANSETRON 4 MG/2 ML VIAL ONE (05:06)
[2019-06-05 05:50] VITALS: O2SAT 96
[2019-06-05 05:53] VITALS: BP 94/66; TEMP 98
--- NOTE | 2019-06-05 11:56 | RAD REPORT ---
EXAM DESCRIPTION: CT - Spine Lumbar Wo Con - 06/05/2019 4:28 am ADDENDUM #1 The height loss of the L1 vertebral body approximately 20%. Minimal retropulsion without significant canal narrowing is noted. THIS REPORT CONTAINS FINDINGS THAT MAY BE CRITICAL TO PATIENT CARE: The findings were verbally discussed via telephone conference with Dr. Jose Long by Dr. Vangie Mendenhall on 4:46 AM CDT .The results were acknowledged and understood. Electronically signed by: Melisa Mendenhall MD 06/05/2019 4:46 AM CDT End of Addendum EXAM DESCRIPTION: CT Lumbar Spine Without Intravenous Contrast CLINICAL HISTORY: The patient is 68 years old and is Female; LOWER BACK PAIN TECHNIQUE: Axial computed tomography images of the lumbar spine without intravenous contrast. Sagi ttal and coronal reformatted images were created and reviewed. This CT exam was performed using one or more of the following dose reduction techniques: automated exposure control, adjustment of the mA and/or kV according to patient size, and/or use of iterative reconstruction technique. COMPARISON: CTA of the chest April 20, 2019. FINDINGS: VERTEBRAE: Acute compression fracture of the superior endplate of L1 is present with min imal height loss and retropulsion. No significant canal narrowing is present. Remaining vertebral bod y heights are maintained. DISCS/SPINAL CANAL/NEURAL FORAMINA: Intervertebral disc space narrowing with vacuum disc phenome non and small disc bulge at L5-S1 is present. Broad-based disc bulge at L4-L5 is also noted. SOFT TISSUES: The soft tissues are normal. LUNGS: Partial visualization of the previously demonstrated complex mass versus consolidation lef t lower lobe is again noted. IMPRESSION: Acute compression fracture of the superior endplate of L1. Electronically signed by: Melisa Mendenhall MD 06/05/2019 4:11 AM CDT Due to temporary technical issues with the PACS/Fluency reporting system, reports are being signed by the in house radiologist as a courtesy to ensure prompt reporting. The interpreting radiologist is f ully responsible for the content of the report.
== END 2019-06-05 05:40 | disposition home or self-care (01) ==
LOC: ER 02:44
DX: S32.019A Unspecified fracture of first lumbar vertebra, initial encounter for closed fracture (principal); W18.00XA Striking against unspecified object with subsequent fall, initial encounter; Y92.002 Bathroom of unspecified non-institutional (private) residence as the place of occurrence of the external cause; N39.0 Urinary tract infection, site not specified; J44.9 Chronic obstructive pulmonary disease, unspecified; C34.90 Malignant neoplasm of unspecified part of unspecified bronchus or lung; Z51.5 Encounter for palliative care; Z79.02 Long term (current) use of antithrombotics/antiplatelets; Z79.899 Other long term (current) drug therapy; Z86.73 Personal history of transient ischemic attack (TIA), and cerebral infarction without residual deficits
CPT/HCPCS: 96365; 85025; 36415; 80053; 72131; 96375; 99285; J2270; J0696; J2405